=== PATIENT | male | born 1985 | race Caucasian/White ===

== ENCOUNTER 2016-07-22 21:20 | Emergency (ER) | payer SELFPAY ==
[~2016-07-22 21:20] MED LIST: COL100 PO
[2016-07-22 21:28] VITALS: BP 119/79
== END 2016-07-23 00:06 | disposition home or self-care (01) ==
LOC: ED 21:20
DX: S29.012A Strain of muscle and tendon of back wall of thorax, initial encounter (principal); Z79.899 Other long term (current) drug therapy; Z91.013 Allergy to seafood; Y93.B2 Activity, push-ups, pull-ups, sit-ups; Y93.89 Activity, other specified; Y92.89 Other specified places as the place of occurrence of the external cause; Y99.8 Other external cause status
CPT/HCPCS: 72072; J1885

== ENCOUNTER 2016-08-11 22:04 | Emergency (ER) | payer SELFPAY ==
[2016-08-11 22:19] VITALS: BP 126/61
== END 2016-08-11 22:19 | disposition left against medical advice (07) ==
LOC: ED 22:04
DX: Z53.21 Procedure and treatment not carried out due to patient leaving prior to being seen by health care provider (principal)

== ENCOUNTER 2018-06-28 10:30 | Emergency (ER) | payer MEDICAID ==
[~2018-06-28] VITALS: Ht 177.8 cm; Wt 126.6 kg
[2018-06-28 10:44] VITALS: BP 133/76; Ht 177.8 cm; Wt 126.6 kg
== END 2018-06-28 11:13 | disposition home or self-care (01) ==
LOC: ED 10:30
DX: B34.9 Viral infection, unspecified (principal); Z91.013 Allergy to seafood

== ENCOUNTER 2019-05-11 10:19 | Emergency (ER) | payer MEDICAID | END 2019-05-11 11:10 | disposition left against medical advice (07) | LOC: ED 10:19 | DX: Z53.21 Procedure and treatment not carried out due to patient leaving prior to being seen by health care provider (principal) ==

== ENCOUNTER 2020-01-31 17:29 | Emergency (ER) | payer MEDICAID ==
[2020-01-31 17:33] VITALS: BP 151/89
== END 2020-01-31 18:30 | disposition home or self-care (01) ==
LOC: ED 17:29
DX: H60.91 Unspecified otitis externa, right ear (principal)

== ENCOUNTER 2020-05-14 18:34 | Emergency (ER) | payer MEDICAID ==
[~2020-05-14] VITALS: Ht 177.8 cm; Wt 122.0 kg
[2020-05-14 18:41] VITALS: BP 120/75; Ht 177.8 cm; Wt 122.0 kg
== END 2020-05-14 19:16 | disposition home or self-care (01) ==
LOC: ED 18:34
DX: S86.892A Other injury of other muscle(s) and tendon(s) at lower leg level, left leg, initial encounter (principal); S86.891A Other injury of other muscle(s) and tendon(s) at lower leg level, right leg, initial encounter; X58.XXXA Exposure to other specified factors, initial encounter; Y93.89 Activity, other specified; Y92.89 Other specified places as the place of occurrence of the external cause; Y99.8 Other external cause status

== ENCOUNTER 2020-05-24 14:27 | Emergency (ER) | payer MEDICAID ==
[~2020-05-24] VITALS: Ht 177.8 cm; Wt 121.6 kg
[2020-05-24 14:58] VITALS: Ht 177.8 cm; Wt 121.6 kg
[2020-05-24 15:56] LABS: BASOPHIL % 0.2 % (0.2-1.5); PLATELET COUNT 260 x10^3mcL (152-348)
[2020-05-24 16:04] LABS: RED CELL DISTRIBUTION WIDTH 15.3 % (12.1-16.2)
[2020-05-24 16:25] LABS: CARBON DIOXIDE 24.5 mmol/L (21-32); CHLORIDE SERUM 99 mmol/L (98-107); CREATININE SERUM 0.9 mg/dL (0.7-1.3); GFR1 > 60 mL/min; GLUCOSE SERUM 116 mg/dL (74-106); POTASSIUM SERUM 3.7 mmol/L (3.5-5.1); SODIUM SERUM 134 mmol/L (136-145)
[2020-05-24 16:29] LABS: ALKALINE PHOSPHATASE 79 U/L (46-116); ALT/SGPT 53 U/L (16-63); AST/SGOT 26 U/L (15-37); BILIRUBIN TOTAL 0.6 mg/dL (0.20-1.00); LIPASE 95 IU/L (73-393); TOTAL PROTEIN, SERUM 8.5 g/dL (6.4-8.2)
[2020-05-24] MEDS ORDERED: PROMETHAZINE25 M3 PO (19:50)
[2020-05-24] MEDS ORDERED: PEDIALYTE1000 ML PO (19:50)
[2020-05-24] MEDS ORDERED: PROBIOTIC1 EAC2 PO (19:50)
[2020-05-24] MEDS ORDERED: PEPCID AC20 M2 PO (19:50)
[2020-05-24 20:11] VITALS: BP 106/54
== END 2020-05-24 20:09 | disposition home or self-care (01) ==
LOC: ED 14:27
PROVIDERS: Emergency Medicine
DX: R10.9 Unspecified abdominal pain (principal); E86.0 Dehydration; R11.10 Vomiting, unspecified; R19.7 Diarrhea, unspecified; Z91.013 Allergy to seafood
CPT/HCPCS: 87046; 87046-59; J1885; J2405; J7030